=== PATIENT | male | born 1960 | race Caucasian/White ===

== ENCOUNTER 2022-11-07 10:47 | Emergency (ER) | payer SELFPAY ==
[~2022-11-07] VITALS: Ht 167.7 cm; Wt 74.8 kg
[2022-11-07 10:50] VITALS: BP 159/108
--- NOTE | 2022-11-07 11:13 | ED Upper Extremity ---
General Chief Complaint: Laceration Stated Complaint: WRIST LAC Nursing Triage Note: Patient states he was cutting a wire with a new pocket knife, states his hand slipped and he punctured his left wrist with the tip of the knife. He states his last tetanus vaccination was 6-7 years ago. Source: patient, EMS Exam Limitations: no limitations History of Present Illness Date Seen by Provider: Nov 07, 2022 Time Seen by Provider: 10:52 Initial Comments 62-year-old male that is [id number] and with a past medical history of hypertension coming in via EMS due to a laceration to his left wrist. He just got a new knife, was working on a project, the knife slipped and stabbed himself in the left wrist. This was completely accidental and occurred just prior to arrival. He immediately applied pressure and called EMS. They noted a slow venous ooze, they continued pressure and brought him here. His last tetanus shot he believes was roughly 7 years ago. He is having pain in his left wrist, but he is able to fully move it and has no numbness. Otherwise denying any o ther acute complaints. Allergies and Home Medications Allergies Coded Allergies: aspirin (Verified Allergy, Unknown, 11/07/22) Patient Home Medication List Home Medication List Reviewed: Yes Review of Systems Constitutional: No fever EENTM: no symptoms reported Respiratory: no symptoms reported Cardiovascular: no symptoms reported Gastrointestinal: no symptoms reported Genitourinary: no symptoms reported Musculoskeletal: see HPI Skin: see HPI Psychiatric/Neurological: No Symptoms Reported Past Bbgprae-[id number]-Jxpnyl Hx Patient Social History Tobacco Use?: No Substance use?: No Alcohol Use?: Yes Pt feels they are or have been: No Past Medical History Surgery/Hospitalization HX: HTN Surgeries: Yes Orthopedic Physical Exam Vital Signs Vital Signs - First Documented 11/07/22 10:50 Temp 36.4 Pulse 98 Resp 18 B/P (MAP) 159/108 (125) Pulse Ox 96 O2 Delivery Room Air Capillary Refill : Less Than 3 Seconds Height, Weight, BMI Height: '" Weight: lbs. oz. kg; 26.00 BMI Method: General Appearance: WD/WN, no apparent distress HEENT: PERRL/EOMI, normal ENT inspection, pharynx normal Neck: non-tender, full range of motion, supple, normal inspection Cardiovascular: regular rate, rhythm, no edema Respiratory: chest non-tender, lungs clear, normal breath sounds, no respiratory distress, no accessory muscle use Wrist: Yes pain (Left wrist with 2 cm laceration that goes to the level of muscle with slow venous ooze, Louis test is reassuring with good capillary refill on both ulnar and radial artery on that side, he is neurovascularly intact, has full sensation in the hand, has full range of motion and strength in the hand as well in all planes) Neurologic/Tendon: normal sensation, normal motor functions, normal tendon functions Neurologic/Psychiatric: no motor/sensory deficits, alert, normal mood/affect Skin: normal color, warm/dry Procedures/Interventions Wound Location: Upper Extremities Other Wound Location left wrist Wound Length (cm): 2 Wound's Depth, Shape: into muscle Wound Explored: clean Irrigated w/ Saline (ccs): 500 Betadine Prep?: No Anesthesia: 1% Lidocaine Volume Anesthetic (ccs): 5 Suture: Ethlion Suture Size: 4-0 Number of Sutures: 3 Progress Wound was explored fully and assessed vascular status. He had good capillary refill and Louis test was reassuring on that wrist showing he has dominant arterial flow still present. After this, the wound was closed with simple interrupted sutures, and pressure was utilized to stop the remaining venous oozing. Progress/Results/Core Measures Results/Orders My Orders Orders - ZACKARY CARCAMO MD Dipht/Pertuss(Acell)/Tet Adult (Dipht/Pe (11/07/22 11:15) Hydrocodone/Apap 5/325 Tablet (Hydrocod (11/07/22 11:15) Medications Given in ED Current Medications Medications Dose Ordered Sig/Jazmyn Route Start Time Stop Time Status Last Admin Dose Admin Acetaminophen/ Hydrocodone Bitart 1 ea ONCE ONCE PO 11/07/22 11:15 11/07/22 11:16 DC 11/07/22 11:11 1 EA Diphtheria/ Tetanus/Acell Pertussis 0.5 ml ONCE ONCE IM 11/07/22 11:15 11/07/22 11:16 DC 11/07/22 11:12 0.5 ML Vital Signs/I&O 11/07/22 10:50 Temp 36.4 Pulse 98 Resp 18 B/P (MAP) 159/108 (125) Pulse Ox 96 O2 Delivery Room Air Blood Pressure Mean: 125 Progress Progress Note : Progress Note 62-year-old male with above history coming in due to a laceration to his left wrist. ABCs were intact and vitals were stable on presentation. He did show a slow venous ooze on exam, and Louis test was reassuring with both his radial and ulnar artery being patent. Neurovascularly intact otherwise. No tendon injury on exam. The wound was cleaned, anesthetized, and closed with suture. We then continued pressure to be sure the bleeding had fully stopped. Tetanus was updated and he was given hydrocodone for pain control here. I monitored the wound for some time again and continued to be stable with no bleeding and no expanding hematoma. I believe he is stable for discharge with outpatient follow-up. He was sent home with strict return precautions. He was given a wrist splint to protect the wound. Departure Impression Primary Impression: Laceration of wrist, left Qualified Codes: S61.512A - Laceration without foreign body of left wrist, initial encounter Disposition: HOME, SELF-CARE Condition: Stable Departure-Patient Inst. Decision time for Depature: 11:45 Patient Instructions: Laceration Repair With Stitches ED Add. Discharge Instructions: The stitches need to come out in 10 days, you can come back to the ER for that. Take ibuprofen and/or Tylenol as needed for pain. Try to keep the wrist relatively immobile for the next several days so does not open back up and try to bleed again. If it does bleed again, apply pressure directly to the area where it is bleeding for 10 minutes. If there is still significant bleeding after that, please come back to the ER. You will see some bruising and swelling which is to be expected. ZACKARY CARCAMO MD Nov 07, 2022 11:13
[2022-11-07] MEDS ORDERED: HYDROcodone/ACETAMINOPHEN 5 MG/325 MG TABLET PO ONE (11:15)
[2022-11-07] MEDS ORDERED: Tetanus/Diphtheria/Pertussis (Acell) ADULT Vaccine 0.5 ML IM ONE (11:15)
== END 2022-11-07 12:00 | disposition home or self-care (01) ==
LOC: ER FS 10:48
DX: S61.512A Laceration without foreign body of left wrist, initial encounter (principal); Z23 Encounter for immunization; W26.0XXA Contact with knife, initial encounter
CPT/HCPCS: 12001; 90715